=== PATIENT | male | born 1995 | race Caucasian/White ===

== ENCOUNTER 2019-04-04 07:17 | Emergency (ER) | payer OTHER ==
[2019-04-04] MEDS ORDERED: Lidocaine 1% 10 ML MDV INJECT ONE (08:02)
[2019-04-04] MEDS ORDERED: Ketorolac 30 MG/ML SDV IM ONE (08:02)
--- NOTE | 2019-04-04 08:51 | EDM.PDOC ---
ED [facility] GENERAL MEDICAL PROBLEM - General Chief Complaint: Laceration Stated Complaint: SPLIT LT EAR OPEN Time Seen by Provider: 04/04/19 08:50 Source of Information: Reports: Patient History Limitations: Reports: No Limitations - History of Present Illness INITIAL COMMENTS - FREE TEXT/NARRATIVE: Patient is a 24-year-old male presenting with chief complaint of slip and fall. Patient states he slipped on ice and struck his left ear slicing no pain. Patient denies any other trauma. Patient has no head trauma. Patient denies any loss of consciousness. Patient has pain isolated to the left ear which not radiate. Pain is worse with palpation. Pmhx: None Pshx: None Family Hx: noncontributory Smoking history? no Etoh use? none Drug use? none In addition to that documented in the HPI above, the additional ROS was obtained : Constitutional: Denies fevers or chills Eyes: Denies vision changes ENMT: Denies sore throat CV: Denies chest pain Resp: Denies SOB GI: Denies vomiting or diarrhea : Denies painful urination MSK: Per HPI Skin: Denies new rashes Neuro: Denies new numbness or tingling or weakness Endocrine: Denies unexpected weight loss Heme: Denies bleeding disorders I have reviewed the triage vital signs Const: Well nourished, well developed, appears stated age Eyes: PERRL, no conjunctival injection HENT: Patient has laceration through and through to the left ear helix approximately 1.5 cm. NCAT, Neck supple without meningismus CV: RRR, Warm, well-perfused extremities RESP: CTAB, Unlabored respiratory effort GI: soft, non-tender, non-distended, no masses MSK: No gross deformities appreciated Skin: Warm, dry. No rashes Neuro: Alert, environmental project manager II-XII grossly intact. Sensation and motor function of extremities grossly intact. Psych: Appropriate mood and affect Assessment and plan Patient 21-year-old male with laceration to the left ear. Laceration was repaired primarily using 6-0 suture. Patient tolerated procedure well. Patient placed with a compressive dressing. Patient instructed to return in 5 days for suture removal. Patient given return precautions. All questions were asked and answered. Patient has no trauma and agrees to go home. Procedure note for laceration repair: Patient or guardian consent: the patient or guardian's understanding of the procedure matches consent given Patient identity confirmed: arm band and verbally with patient Time out: Immediately prior to procedure a "time out" was called to verify the correct patient, procedure, equipment, Body area: Left ear helix Laceration length: 2 cm Foreign bodies: no foreign bodies Vascular damage: no Anesthesia: local infiltration as well as auricular nerve block local anesthetic : lidocaine without epinephrine Anesthetic total: 6 ml Patient sedated: no Preparation: Patient was prepped and draped in the usual sterile fashion. Betadine used Irrigation solution: saline Irrigation method: Tap water lavage and syringe Amount of cleaning: extensive Debridement: none Degree of undermining: none Skin closure: Five 6-0 nylon Technique: interupted Approximation: close Approximation Difficulty: simple Dressing: Compression bandage and head wrap with sterile dressing Patient tolerance: Patient tolerated the procedure well with no immediate complications. left ear Pain Score (Numeric/FACES): 8 - Related Data Allergies Allergy/AdvReac Type Severity Reaction Status Date / Time No Known Allergies Allergy Verified 04/04/19 07:33 Home Meds: Home Meds . [No Known Home Meds] 04/04/19 [History] Past Medical History - Past Health History Medical/Surgical History: Denies Medical/Surgical History - Infectious Disease History Infectious Disease History: Reports: Chicken Pox Social & Family History - Family History Family Medical History: Noncontributory - Tobacco Use Smoking Status *Q: Never Smoker - Caffeine Use Caffeine Use: Reports: None ED ROS GENERAL - Review of Systems Review Of Systems: See Below ED EXAM, SKIN/RASH Exam: See Below Course - Vital Signs Last Recorded V/S: Last Vital Signs Temp 36.2 C 04/04/19 07:29 Pulse 79 04/04/19 10:53 Resp 18 04/04/19 10:53 BP 146/80 H 04/04/19 10:53 Pulse Ox 98 04/04/19 10:53 - Orders/Labs/Meds Meds: Medications Discontinued Medications Generic Name Dose Route Start Last Admin Trade Name Freq PRN Reason Stop Dose Admin Acetaminophen 650 mg 04/04/19 10:45 04/04/19 10:52 Tylenol PO 04/04/19 10:46 650 mg NOW ONE Administration Ketorolac Tromethamine 30 mg 04/04/19 08:02 04/04/19 08:12 Toradol IM 04/04/19 08:03 30 mg ONETIME ONE Administration Lidocaine HCl 10 ml 04/04/19 08:02 04/04/19 08:13 Xylocaine 1% INJECT 04/04/19 08:03 Not Given ONETIME ONE Lidocaine HCl 10 ml 04/04/19 08:06 04/04/19 08:13 Xylocaine-Mpf 1% INJECT 04/04/19 08:07 10 ml ONETIME ONE Administration Departure - Departure Time of Disposition: 10:48 Disposition: Home, Self-Care 01 Clinical Impression: Laceration of ear region - Discharge Information Instructions: Laceration Care, Adult, [id number] Referrals: PCP,None [Primary Care Provider] - Forms: ED Department Discharge Additional Instructions: The following information is given to patients seen in the emergency department who are being discharged to home. This information is to outline your options for follow-up care. We provide all patients seen in our emergency department with a follow-up referral. The need for follow-up, as well as the timing and circumstances, are variable depending upon the specifics of your emergency department visit. If you don't have a primary care physician on staff, we will provide you with a referral. We always advise you to contact your personal physician following an emergency department visit to inform them of the circumstance of the visit and for follow-up with them and/or the need for any referrals to a consulting specialist. The emergency department will also refer you to a specialist when appropriate. This referral assures that you have the opportunity for follow-up care with a specialist. All of these measure are taken in an effort to provide you with optimal care, which includes your follow-up. Under all circumstances we always encourage you to contact your private physician who remains a resource for coordinating your care. When calling for follow-up care, please make the office aware that this follow-up is from your recent emergency room visit. If for any reason you are refused follow-up, please contact the [facility] Emergency Department at and asked to speak to the emergency department charge nurse. [facility] [id number] [address] [id number] Sepsis Event Note - Evaluation Sepsis Screening Result: No Definite Risk - Focused Exam Vital Signs: Vital Signs Temp Pulse Resp BP Pulse Ox 04/04/19 10:53 79 18 146/80 H 98 04/04/19 07:29 36.2 C 95 16 136/79 95 Date Exam was Performed: 04/04/19 Time Exam was Performed: 13:47
[2019-04-04] MEDS ORDERED: Acetaminophen 325 MG Tab PO ONE (10:45)
== END 2019-04-04 10:58 | disposition home or self-care (01) ==
LOC: MW.ED 07:17
DX: S01.312A Laceration without foreign body of left ear, initial encounter (principal); W01.198A Fall on same level from slipping, tripping and stumbling with subsequent striking against other object, initial encounter
CPT/HCPCS: 12011; 96372; 99282; A9270; J1885; J2001